=== PATIENT | female | born 1940 | race Caucasian/White ===

== ENCOUNTER 2021-04-20 11:54 | Emergency (ER) | payer MEDICARE, BC, SELFPAY ==
[2021-04-20] VITALS (13 sets, daily range): BP systolic 120–149; BP diastolic 57–88; PULSE 52–80; RESP 14–23; TEMP 36.4; O2SAT 99–100; BMI 23.1
--- NOTE | 2021-04-20 12:18 | DI.RAD.S_ITS ---
PROCEDURE: XR CHEST 1V INDICATIONS: altered mental status TECHNIQUE: One view of the chest was acquired. COMPARISON: None. FINDINGS: Surgical changes and devices: None. Lungs and pleura: There is a rounded 1.6 cm nodular opacity projecting in the left mid lung zone. No acute airspace disease identified. No pleural effusions or pneumothorax. Mediastinum: Mediastinal contours appear normal. Heart size is normal. Bones and chest wall: No suspicious bony lesions. Overlying soft tissues appear unremarkable. Diffuse osteopenia. Dextroscoliosis of the lower thoracic spine. IMPRESSION: No acute cardiopulmonary abnormalities. A 1.6 cm right mid lung zone pulmonary nodule. Recommend comparison with any prior imaging to document stability. Otherwise, recommend short interval follow-up radiograph in 3 months to document stability. Dictated by: Pito Jose M.D. on 04/20/2021 at 12:53 Approved by: Pito Jose M.D. on 04/20/2021 at 13:15
--- NOTE | 2021-04-20 12:33 | DI.CT.S_ITS ---
PROCEDURE: CT HEAD/BRAIN WO CON INDICATIONS: Headache and disorientation for 4 days TECHNIQUE: Noncontrast 4.5 mm thick angled axial sections acquired from the foramen magnum to the vertex, with coronal and sagittal reformats. For radiation dose reduction, the following was used: automated exposure control, adjustment of mA and/or kV according to patient size. COMPARISON: None. FINDINGS: Image quality: Excellent. CSF spaces: Basal cisterns are patent. No extra-axial fluid collections. The ventricles are symmetric in size and shape. Brain: There is extensive subcortical and deep white matter hypoattenuation involving the right temporal lobe and parietal lobe with associated sulcal effacement. There is mild leftward shift of approximately 1.0 cm and effacement of the right lateral ventricle. There is a more focal area of hypoattenuation involving the posterior margins of the right temporoparietal lobe with more peripheral hyperdensity, suggesting acute hemorrhage. There is cerebral volume loss for age, with resultant ventricular and sulcal prominence. There are periventricular and deep white matter chronic small vessel ischemic changes. There is intracranial internal carotid artery atherosclerosis. Skull and face: Calvarium and visualized facial bones appear intact, without suspicious lesions. Sinuses: Visualized sinuses and mastoids are clear. IMPRESSION: 1. Extensive deep white matter and periventricular hypoattenuation of the right middle cerebral artery distribution involving both the right temporal and parietal lobes. There is a more focal region of hypoattenuation with suspected acute internal hemorrhage in the posterior margins of the right temporoparietal region. There is associated edema and mass effect with 1.0 cm of leftward shift of the midline structures and effacement of the right lateral ventricle. Findings may represent hemorrhagic infarct although underlying hemorrhagic mass not completely excluded. 2. Age related senescent changes and sequela of chronic small vessel ischemic disease. Findings were discussed with Dr. Costa at 1330 hrs. Dictated by: Pito Jose M.D. on 04/20/2021 at 13:15 Approved by: Pito Jose M.D. on 04/20/2021 at 13:31
--- NOTE | 2021-04-20 12:38 | ED_ITS ---
HPI - Headache General Chief Complaint: Headache Stated Complaint: bad headache Time Seen by Provider: 04/20/21 12:32 Source: patient Mode of arrival: Ambulatory Limitations: no limitations History of Present Illness HPI Narrative: Patient is a 80-year-old female. Here for evaluation of a headache. Initially patient states that the headache is been going on for the past 4 days however the patient's thinks that was potentially longer than that. She does describe it as both sides of her head but is certainly more on the right than the left. She does have history of glaucoma although she denies any vision changes. Headache not made better worse with palpation or movement. She thought that maybe it was a sinus infection so she took some Tylenol/Sinus medication yesterday without any improvement. She denies any other neurologic symptoms. No balance issues. No ear fullness. No sore throat. No headache. No neck pain. Symptoms had not improved by this morning so she thought she would come to the emergency department for evaluation Related Data Allergies Allergy/AdvReac Type Severity Reaction Status Date / Time No Known Drug Allergies Allergy Verified 04/20/21 12:02 Review of Systems Constitutional Constitutional: Denies chills, Denies fatigue, Denies fever(s), Reports headache(s) and Denies weakness Eyes Eyes: Denies blurry vision, Denies change in vision and Denies loss of vision ENT Ears, Nose, Mouth, and Throat: Denies vertigo, Denies dizziness, Reports headache(s), Denies disequilibrium and Denies sore throat Cardiovascular Cardiovascular: Denies chest pain, Denies rapid heart rate and Denies dyspnea Respiratory Respiratory: Denies cough and Denies dyspnea Gastrointestinal Gastrointestinal: Denies abdominal pain and Denies change in bowel habits Genitourinary Genitourinary: Denies dysuria Musculoskeletal Musculoskeletal: Denies back pain, Denies myalgias, Denies numbness and Denies tingling Integumentary/Breasts Skin/Breast: Reports system reviewed and no additional complaints, except as documented Neurologic Neurologic: Denies abnormal movements, Denies abnormal speech, Denies behavioral changes, Denies vertigo, Denies dizziness, Reports headache(s), Denies loss of vision, Denies numbness, Denies seizure-like activity, Denies tingling, Denies disequilibrium and Denies weakness Psychiatric Psychiatric: Denies behavioral changes Endocrine Endocrine: Denies fatigue Hematologic/Lymphatic On Anticoagulants: No Allergic/Immunologic Allergic/Immunologic: Reports system reviewed and no additional complaints, except as documented Patient History Medical History Glaucoma Social History Smoking Status: Unknown if ever smoked Smoking Status: Unknown if ever smoked alcohol intake frequency: holidays/special occasions only Substance Use Type: does not use Exam Initial Vital Signs Initial Vital Signs: Vital Signs Temperature 97.6 F 04/20/21 11:58 Pulse Rate 80 04/20/21 11:58 Respiratory Rate 14 04/20/21 11:58 Blood Pressure 137/65 04/20/21 11:58 Pulse Oximetry 100 04/20/21 11:58 Const General: cooperative, healthy appearing, comfortable, well developed, well groomed and No acute distress HENMT Head: normal to inspection and normocephalic Ears: TM's normal bilaterally Nose: external nose normal Face and sinus: normal facial exam Eyes General: appearance normal, both eyes and all related structures Alignment and Position: alignment normal Periorbital: periorbital findings normal Eyelids: eyelids normal Pupils: PERRL EOM: EOM intact bilaterally Other: Intra-ocular pressure right eye 21 interocular pressure left eye 20, patient with left sided visual field loss Neck Neck: normal visual inspection Resp Effort & Inspection: normal respiratory effort Auscultation: clear to auscultation bilaterally Cardio Rate: regular rate Rhythm: regular rhythm GI Inspection: normal to inspection Palpation: soft Skin General: no rashes or lesions noted Neuro General: patient alert, patient awake, patient oriented x3, gait normal and moves all extremities Cognition: normal cognition Speech: speech normal Gait: normal gait Motor: muscle tone normal throughout Sensory Exam: no sensory deficits noted Coordination: [id number] test normal and [id number] test normal Extrem General: normal to inspection and capillary refill normal Psych Appearance: grossly normal and well kempt Speech and Movement: speech and movement normal Mood: congruent mood Scores GCS Jayashree coma scale eye opening: Spontaneous Gilbert coma scale verbal response: Orientated Jayashree coma scale motor response: Obey commands Jayashree coma scale total score: 15 NIH Stroke Scale Level of Conciousness: Alert, keenly responsive Ask month/age: Answers both questions correctly. Open/close eyes, close hand: Performs both tasks correctly Best gaze horizontal: Normal Visual grace: Complete hemianopia Facial palsy: Normal symetrical movement Left arm drift: No drift for full 10 sec Right arm drift: No drift for full 10 sec Left leg drift: No drift for full 5 sec Right leg drift: No drift for full 5 sec Limb ataxia: Absent Sensory on face/arms/legs: Normal, no sensory loss Best language: No aphasia, normal Dysarthria: Normal Extinction or inattention: No abnormality Total NIH Stroke scale score: 2 Course Orders Ordered: ED Orders 04/20/21 12:02 Urinalysis and Microscopic Stat Urine Culture Stat 04/20/21 12:18 XR chest 1V Stat EKG-12 Lead Stat 04/20/21 12:33 CT head/brain wo con Stat 04/20/21 12:35 Complete Blood Count AUTO DIFF Stat Comprehensive Metabolic Panel Stat 04/20/21 14:27 CT chest abd pel w con Stat MR head/brain wo/w con Stat 04/20/21 14:49 COVID19 -Nasal swab/Pre-Proc Stat Sodium Chloride (Normal Saline 0.9%) 1,000 mls @ 125 mls/hr IV CONT ZULEIKA Last Admin: 04/20/21 15:37 Dose: 125 mls/hr Documented by: Discontinued Medications Dexamethasone (Dexamethasone 10 Mg/Ml Vial) 10 mg IV NOW ONE Stop: 04/20/21 13:52 Last Admin: 04/20/21 13:57 Dose: 10 mg Documented by: ISABELLE Lorazepam (Lorazepam 2 Mg/Ml Inj) 1 mg IV NOW ONE Stop: 04/20/21 14:52 Last Admin: 04/20/21 14:56 Dose: 1 mg Documented by: DASIA Proparacaine HCl (Proparacaine 0.5% Ophth Ada) 1 drops EYE-LEFT NOW ONE Stop: 04/20/21 12:40 Last Admin: 04/20/21 13:03 Dose: 1 drops Documented by: ISABELLE Vital Signs Vital signs: Vital Signs - 8 hr 04/20/21 11:58 04/20/21 12:59 04/20/21 13:00 Temperature 97.6 F Pulse Rate 80 53 L 53 L Respiratory Rate 14 19 18 Blood Pressure 137/65 125/60 Pulse Oximetry 100 100 100 04/20/21 13:30 04/20/21 14:00 04/20/21 14:17 Temperature Pulse Rate 52 L 69 63 Respiratory Rate 15 22 Blood Pressure 138/62 149/65 H Pulse Oximetry 100 100 100 04/20/21 14:30 Temperature Pulse Rate 59 L Respiratory Rate 22 Blood Pressure 136/65 Pulse Oximetry 100 MDM - Headache Lab Data Attestation: I reviewed the patient's lab results. Result diagrams: 04/20/21 12:35 04/20/21 12:35 Labs: Lab Results 04/20/21 04/20/21 04/20/21 Range/Units 12:02 12:35 12:35 WBC 6.4 (4.5-11.0) X10^3/uL RBC 4.47 (4.0-5.2) X10^6/uL Hgb 14.1 (12.0-16.0) g/dL Hct 42.0 (36-46) % MCV 94.0 (80-100) fL MCH 31.5 (26-34) PG MCHC 33.5 (30-36) % RDW 13.9 (11.6-14.8) % Plt Count 169 (150-400) X10^3/uL Neut % (Auto) 75.4 H (50-75) % Lymph % (Auto) 17.2 L (25-40) % Gordon % (Auto) 6.1 (3-14) % Eos % (Auto) 0.6 L (2-4) % Baso % (Auto) 0.7 (0-2) % Neut # (Auto) 4800 (2484-8253) /uL Lymph # (Auto) 1100 (9453-1110) /uL Gordon # (Auto) 400 (0-900) /uL Eos # (Auto) 0 (0-450) /uL Baso # (Auto) 0 (0-100) /uL Sodium 141 (137-145) mmol/L Potassium 3.6 (3.4-5.1) mmol/L Chloride 104 (98-107) mmol/L Carbon Dioxide 28 (22-32) mmol/L BUN 17 (7-17) mg/dL Creatinine 0.68 (0.52-1.04) mg/dL Estimated GFR > 60.0 (>60) mL/min BUN/Creatinine Ratio 25.0 H (6-22) Glucose 111 H (80-110) mg/dL Calcium 10.1 (8.4-10.2) mg/dL Total Bilirubin 0.8 (0.2-1.3) mg/dL AST 25 (14-36) IU/L ALT 16 (<35) IU/L Alkaline Phosphatase 97 (38-126) U/L Total Protein 7.4 (6.3-8.2) g/dL Albumin 4.8 (3.5-5.0) g/dL Globulin 2.6 (1.7-4.1) g/dL Albumin/Globulin Ratio 1.8 (1.0-2.8) Urine Color Yellow Urine Appearance Clear Urine pH 6.0 (4.5-8.0) Ur Specific [place] <=1.005 (1.000-1.035) Urine Protein Negative (Negative) Urine Glucose (UA) Negative (Negative) g/dL Urine Ketones Negative (NEGATIVE) Urine Occult Blood 2+ H (Negative) Urine Nitrate Negative (Negative) Urine Bilirubin Negative (NEGATIVE) Urine Urobilinogen 0.2 (0.2) E.U./dL Ur Leukocyte Esterase Trace H (NEGATIVE) Urine RBC 1-5/hpf (0-5/HPF) Urine WBC 1-5/hpf (0-5/HPF) Ur Squamous Epith Cells 1-5 /hpf (0-5/HPF) Ur Transition Epith Cell 1-5/hpf (0-5/HPF) Ur Renal Epithelial Cell 1-5/hpf H (0-1/HPF) Urine Bacteria Few (2-10) H (None) Ur Culture Indicated? Specimen cultured SARS-CoV-2 (PCR) (Negative) 04/20/21 Range/Units 14:49 WBC (4.5-11.0) X10^3/uL RBC (4.0-5.2) X10^6/uL Hgb (12.0-16.0) g/dL Hct (36-46) % MCV (80-100) fL MCH (26-34) PG MCHC (30-36) % RDW (11.6-14.8) % Plt Count (150-400) X10^3/uL Neut % (Auto) (50-75) % Lymph % (Auto) (25-40) % Gordon % (Auto) (3-14) % Eos % (Auto) (2-4) % Baso % (Auto) (0-2) % Neut # (Auto) (4018-7838) /uL Lymph # (Auto) (3850-1063) /uL Gordon # (Auto) (0-900) /uL Eos # (Auto) (0-450) /uL Baso # (Auto) (0-100) /uL Sodium (137-145) mmol/L Potassium (3.4-5.1) mmol/L Chloride (98-107) mmol/L Carbon Dioxide (22-32) mmol/L BUN (7-17) mg/dL Creatinine (0.52-1.04) mg/dL Estimated GFR (>60) mL/min BUN/Creatinine Ratio (6-22) Glucose (80-110) mg/dL Calcium (8.4-10.2) mg/dL Total Bilirubin (0.2-1.3) mg/dL AST (14-36) IU/L ALT (<35) IU/L Alkaline Phosphatase (38-126) U/L Total Protein (6.3-8.2) g/dL Albumin (3.5-5.0) g/dL Globulin (1.7-4.1) g/dL Albumin/Globulin Ratio (1.0-2.8) Urine Color Urine Appearance Urine pH (4.5-8.0) Ur Specific [place] (1.000-1.035) Urine Protein (Negative) Urine Glucose (UA) (Negative) g/dL Urine Ketones (NEGATIVE) Urine Occult Blood (Negative) Urine Nitrate (Negative) Urine Bilirubin (NEGATIVE) Urine Urobilinogen (0.2) E.U./dL Ur Leukocyte Esterase (NEGATIVE) Urine RBC (0-5/HPF) Urine WBC (0-5/HPF) Ur Squamous Epith Cells (0-5/HPF) Ur Transition Epith Cell (0-5/HPF) Ur Renal Epithelial Cell (0-1/HPF) Urine Bacteria (None) Ur Culture Indicated? SARS-CoV-2 (PCR) Negative (Negative) Point of Care Testing Glucose POC 103 Urine Dip Bedside Urine Glucose Negative Bedside Urine Bilirubin - Negative Bedside Urine Ketone - Negative Urine Specific [place] 1.010 Bedside Urine Occult Blood + Bedside Urine pH 6.0 Bedside Urine Protein - Negative Bedside Urine Urobilinogen - Negative Bedside Urine Nitrite - Negative Bedside Urine Leukocytes - Negative Esterase Imaging Data Chest x-ray: Radiologist's Impression: [address] [address] XRay Report Signed Patient: Soniya Braun MR#: [id number] : 1940 Acct:[id number] Age/Sex: 80 / F Date of Service: 04/20/21 Loc: ED Accession Number: [id number] ?? Procedure: XR chest 1V Ordering Provider: Freddy Costa D.O. PROCEDURE:? XR CHEST 1V ? INDICATIONS:? altered mental status ? TECHNIQUE:? One view of the chest was acquired.? ? COMPARISON:? None. ? FINDINGS:? ? Surgical changes and devices:? None.? ? Lungs and pleura:? There is a rounded 1.6 cm nodular opacity projecting in the left mid lung zone.? No acute airspace disease identified.? No pleural effusions or pneumothorax.? ? ? Mediastinum:? Mediastinal contours appear normal.? Heart size is normal.? ? Bones and chest wall:? No suspicious bony lesions.? Overlying soft tissues appear unremarkable.? Diffuse osteopenia.? Dextroscoliosis of the lower thoracic spine. ? IMPRESSION:? No acute cardiopulmonary abnormalities. A 1.6 cm right mid lung zone pulmonary nodule.? Recommend comparison with any prior imaging to document stability.? Otherwise, recommend short interval follow-up radiograph in 3 months to document stability. ? ? Dictated by: Pito Jose M.D. on 04/20/2021 at 12:53 ? ? Approved by: Pito Jose M.D. on 04/20/2021 at 13:15? CT scan - head: Radiologist's Impression: [address] [address] [address] Scan Report Signed Patient: Soniya Braun MR#: [id number] : 1940 Acct:[id number] Age/Sex: 80 / F Date of Service: 04/20/21 Loc: ED Accession Number: [id number] ?? Procedure: CT head/brain wo con Ordering Provider: Freddy Costa D.O. PROCEDURE:? CT HEAD/BRAIN WO CON ? INDICATIONS:? Headache and disorientation for 4 days ? TECHNIQUE:? Noncontrast 4.5 mm thick angled axial sections acquired from the foramen magnum to the vertex, with coronal and sagittal reformats.? For radiation dose reduction, the following was used:? automated exposure control, adjustment of mA and/or kV according to patient size.? ? COMPARISON:? None. ? FINDINGS:? Image quality:? Excellent.? ? CSF spaces:? Basal cisterns are patent.? No extra-axial fluid collections.? The ventricles are symmetric in size and shape.? ? Brain:? There is extensive subcortical and deep white matter hypoattenuation involving the right temporal lobe and parietal lobe with associated sulcal effacement.? There is mild leftward shift of approximately 1.0 cm and effacement of the right lateral ventricle.? There is a more focal area of hypoattenuation involving the posterior margins of the right temporoparietal lobe with more peripheral hyperdensity, suggesting acute hemorrhage. There is cerebral volume loss for age, with resultant ventricular and sulcal prominence.? There are periventricular and deep white matter chronic small vessel ischemic changes.? There is intracranial internal carotid artery atherosclerosis.? ? Skull and face:? Calvarium and visualized facial bones appear intact, without suspicious lesions.? ? Sinuses:? Visualized sinuses and mastoids are clear.? ? IMPRESSION:? ? 1. Extensive deep white matter and periventricular hypoattenuation of the right middle cerebral artery distribution involving both the right temporal and parietal lobes.? There is a more focal region of hypoattenuation with suspected acute internal hemorrhage in the posterior margins of the right temporoparietal region.? There is associated edema and mass effect with 1.0 cm of leftward shift of the midline structures and effac ement of the right lateral ventricle.? Findings may represent hemorrhagic infarct although underlying hemorrhagic mass not completely excluded. ? 2. Age related senescent changes and sequela of chronic small vessel ischemic disease. ? ?Findings were discussed with Dr. Costa at 1330 hrs.? Dictated by: Pito Jose M.D. on 04/20/2021 at 13:15 ? ? Approved by: Pito Jose M.D. on 04/20/2021 at 13:31?? CT chest/abd/pelvis: Radiologist's Impression: [address] [address] [address] Scan Report Signed Patient: Soniya Braun MR#: [id number] : 1940 Acct:[id number] Age/Sex: 80 / F Date of Service: 04/20/21 Loc: ED Accession Number: [id number] ?? Procedure: CT chest abd pel w con Ordering Provider: Freddy Costa D.O. PROCEDURE:? CT CHEST ABD PEL W CON ? INDICATIONS:? brain tumor eval for primary ? TECHNIQUE:? After the administration of oral and intravenous contrast, axial sections acquired from the supraclavicular neck to the pubic symphysis.? Coronal and sagittal reformats were performed.? For radiation dose reduction, the following was used:? automated exposure control, adjustment of mA and/or kV according to patient size.? ? COMPARISON:[facility], MR, MR HEAD/BRAIN WO/W CON, 04/20/2021, 14:57.? [facility], CT, CT HEAD/BRAIN WO CON, 04/20/2021, 12:43. ? FINDINGS:? Image quality:? Excellent.? ? CHEST: Lower Neck: No enlarged lymph nodes.? Thyroid:? Visualized thyroid demonstrates no discrete nodules. Axillae: No enlarged lymph nodes. Chest Wall:? Unremarkable.? ? Lungs and Airways:? There is a left upper lobe pulmonary nodule measuring up to 1.7 x 1.5 cm in transverse dimension on series 3, image 131. The findings are highly suspicious for a neoplasm.? Elsewhere, there are areas of multiple small clustered nodules within the left lingula, right upper lobe, right lower lobe, and right middle lobe with associated mild bronchiectasis and mucous plugging also demonstrated in the right middle lobe.? Small peripheral areas of consolidation or atelectasis are also noted in the inferior right middle lobe.? These findings are compatible with sequelae of a chronic atypical infection such as [place].? Pleura: No pneumothorax or pleural effusions.? ? Heart: Heart size is normal.? No pericardial effusion. Thoracic Vessels: The aorta and pulmonary arteries demonstrate normal size.? Mediastinum and Alison: No enlarged lymph nodes.? Esophagus: No wall thickening.? There is a small hiatal hernia. ? ? ABDOMEN: Liver:? Multiple cysts are demonstrated in the liver as well as additional small low-density foci which are too small to characterize but likely represent cysts.? There is a region of coarse calcification posteriorly within the right hepatic lobe suggesting sequelae of prior infection.? ? Gallbladder:? Unremarkable.? ? Biliary ducts:? Unremarkable.? ? Pancreas:? Unremarkable.? ? Spleen:? Unremarkable.? ? Adrenal Glands:? Unremarkable.? ? Kidneys and Ureters:? Kidneys demonstrate no hydronephrosis.? There is a small hypodensity medially within the left kidney which is too small to characterize but likely represents a cyst. ? Stomach and Bowel:? Stomach, small bowel loops, and colon are normal in caliber and wall thickness.? There is colonic diverticulosis without acute diverticulitis. Peritoneum:? No abnormal intraperitoneal fluid.? No free air.? ? Ventral Wall: ? No hernia.? Abdominal Nodes:? No retroperitoneal or mesenteric adenopathy by size criteria.? Vessels:? Aorta and inferior vena cava are normal in size.? ? PELVIS: Pelvic Organs:? There are lobulated mass lesions within the uterus likely representing fibroids.? No definite adnexal masses. Bladder:? Unremarkable.? ? Pelvic Nodes: No enlarged lymph nodes.? Miscellaneous: No inguinal hernias are seen. ? ? ? Bones:? Visualized osseous structures demonstrate no suspicious focal lesions.? ? ? IMPRESSION:? ? 1.? Left upper lobe nodule suspicious for neoplasm, likely bronchogenic carcinoma. ? 2.? No lymphadenopathy or other definite evidence of metastatic disease in the chest, abdomen, or pelvis. ? 3.? Multiple additional small clustered nodules bilaterally with associated areas of bronchiectasis and mucous plugging and mild peripheral consolidation in the right middle lobe likely represents sequelae of a chronic atypical infection such as [place]. ? 4. Lobulated uterine masses likely representing fibroids. ? Dictated by: John Younger M.D. on 04/20/2021 at 15:33 ? ? Approved by: John Younger M.D. on 04/20/2021 at 15:44?? MRI brain: Radiologist's Impression: [address] [address] Magnetic Resonance Report Signed Patient: Soniya Braun MR#: [id number] : 1940 Acct:[id number] Age/Sex: 80 / F Date of Service: 04/20/21 Loc: ED Accession Number: [id number] ?? Procedure: MR head/brain wo/w con Ordering Provider: Freddy Costa D.O. PROCEDURE:? MR HEAD/BRAIN WO/W CON ? INDICATIONS:? brain mass ? TECHNIQUE:? Noncontrast axial T1 spin echo, axial T2 fast spin echo, sagittal and axial FLAIR, coronal T2 fast spin echo, axial gradient echo, axial diffusion and ADC through the brain.? After the administration of contrast, axial and coronal T1 spin echo with fat saturation through the brain.? ? COMPARISON:? [facility], CT, CT HEAD/BRAIN WO CON, 04/20/2021, 12:43. ? FINDINGS:? Image quality:? Excellent.? ? CSF spaces:? No extra-axial fluid collections.? The right lateral ventricle is narrowed.? The basal cisterns remain patent, yet they are also narrowed. ? Brain:? There is a heterogeneous rim enhancing mass seen involving the posterior aspect of the right temporal lobe that measures 4.7 cm AP x 3.3 cm transversely, with a craniocaudal extent of 3.6 cm.? There is moderate surrounding edema seen.? Associated mass effect is seen, with midline shift of 7 mm.? Along the margins of the mass, there is restricted diffusion seen, which is regarded to be related to the highly cellular nature of the tumor.? Mild internal hemorrhage is seen, with susceptibility artifact on series 10. ? No additional masses are seen. ? There is cerebral volume loss for age.? There is periventricular white matter chronic small vessel ischemic change.? The brainstem appears normal.? Diffusion-weighted images demonstrate no acute ischemic insults.? No chronic ischemic insults.? Normal intravascular flow voids are present.? ? Skull and face:? Calvarial marrow is normal in signal.? A scalp lesion is seen anteriorly and distal left the midline, as on series 12, image 10, measuring 9 mm, potentially related to a sebaceous cyst.? Orbits appear normal.? ? Sinuses:? Sinuses and mastoids appear clear.? ? IMPRESSION:? 4.7 cm mass involving the right temporal lobe, with associated mo derate surrounding edema and mass effect, with 7 mm of midline shift. ? Mild hemorrhage can be seen within the mass. ? Neurosurgical consultation is recommended.? ? Dictated by: Darrel Urbano M.D. on 04/20/2021 at 14:37 ? ? Approved by: Darrel Urbano M.D. on 04/20/2021 at 14:40?? ECG Data Attestation: I personally reviewed and interpreted this ECG as follows: Interpretation: Sinus rhythm Ventricular rate is 63 Normal axis QRS 72 milliseconds QTC [address]-T changes MDM Narrative Medical decision making narrative: Patient arrived with at least 4 days of a headache with right side being greater than left. Initially described no other symptoms. Exam was benign. Vital signs benign. Lab benign. Head CT concerning for right temporal lobe stroke versus mass with midline shift and edema. Further evaluation the patient after this result did show an NIH score of 2 with left-sided visual field loss. Patient was given 10 mg of Decadron. I did discuss the case with Dr. Solis with Neurology at [facility]. She evaluated the head CT and was more concerned about a mass rather than an acute CVA or bleed. She recommended CT scan the chest abdomen pelvis for evaluation of potential primary neoplastic etiology. This was performed. She does have a left lung nodule concerning for carcinoma. Patient also received an MRI with and without contrast of the brain. This does show mass. Patient was accepted to [place] by Dr. Hussein in the emergency department. Secondary to recent weather and concern about wrote closures patient will be transferred by air left. I did discuss all this with the patient and her at bedside. They expressed understanding and agreement. Critical Care Time Critical Care Time Critical Care Time: Yes Total Critical Care Time: 35 Attestation: The high probability of a clinically significant, sudden or life threatening deterioration of the neurologic system(s) required my full and direct attention, intervention and personal management. The aggregate critical care time was [35] minutes. This time is in addition to time spent performing reported procedures but includes the following: [x] Data Review and interpretation [x] Patient assessment and monitoring of vital signs [x] Documentation [x] Medication orders and management Discharge Plan Departure Patient Disposition: [facility] Clinical Impression: Mass of left lung, Mass of brain, Visual field loss
[2021-04-20 12:41] LABS: Add Manual Diff / Slide Review NO; Basophils Absolute Auto 0 /uL (0-100); Basophils Percent Auto 0.7 % (0-2); Eosinophils Absolute Auto 0 /uL (0-450); Eosinophils Percent Auto 0.6 % (2-4); Hemoglobin 14.1 g/dL (12.0-16.0); Lymphocytes Absolute Auto 1100 /uL (1100-4500); Lymphocytes Percent Auto 17.2 % (25-40); Mean Corpuscular HGB Conc 33.5 % (30-36); Mean Corpuscular Hemoglobin 31.5 PG (26-34); Monocytes Absolute Auto 400 /uL (0-900); Monocytes Percent Auto 6.1 % (3-14); Neutrophils Absolute Auto 4800 /uL (1500-7000); Neutrophils Percent Auto 75.4 % (50-75); Platelet Count 169 X10^3/uL (150-400); Red Blood Cell Count 4.47 X10^6/uL (4.0-5.2); Red Cell Distribution Width 13.9 % (11.6-14.8); White Blood Cell Count 6.4 X10^3/uL (4.5-11.0)
[2021-04-20 12:47] LABS: Appearance Urine UA CLEAR; Bilirubin Urine UA NEGATIVE (NEGATIVE); Color Urine UA YELLOW; Glucose Urine UA NEGATIVE (Negative); Ketones Urine UA NEGATIVE (NEGATIVE); Leukocyte Esterase Urine UA TRACE (NEGATIVE); Nitrite Urine UA NEGATIVE (Negative); Occult Blood Urine UA 2+ (Negative); Protein Urine UA NEGATIVE (Negative); Specific Gravity Urine UA <=1.005 (1.000-1.035); Urobilinogen Urine UA 0.2 E.U./dL (0.2)
[2021-04-20 12:57] LABS: Alanine Aminotransferase 16 IU/L (<35); Albumin 4.8 g/dL (3.5-5.0); Albumin Globulin Ratio 1.8 (1.0-2.8); Alkaline Phosphatase 97 U/L (38-126); Aspartate Aminotransferase 25 IU/L (14-36); Bilirubin Total 0.8 mg/dL (0.2-1.3); Blood Urea Nitrogen 17 mg/dL (7-17); Calcium 10.1 mg/dL (8.4-10.2); Carbon Dioxide 28 mmol/L (22-32); Chloride 104 mmol/L (98-107); Estimated Glomerular Filt Rate > 60.0 mL/min (>60); Globulin 2.6 g/dL (1.7-4.1); Glucose 111 mg/dL (80-110); HEMOLYSIS < 15 (0-50); Potassium 3.6 mmol/L (3.4-5.1); Sodium 141 mmol/L (137-145); Total Protein 7.4 g/dL (6.3-8.2)
[2021-04-20] MEDS: PROPARACAINE 0.5% OPHTH SOL 1 DROPS EYE-LEFT (13:03)
[2021-04-20 13:19] LABS: Bacteria Urine Few (2-10); Culture Indicated Urine Specimen Cultured; RBC Urine 1-5/HPF (0-5/HPF); Renal Epithelial Cells Urine 1-5/HPF (0-1/HPF); Squamous Epithelial Cell Urine 1-5 /HPF (0-5/HPF); Transitional Epi Cells Urine 1-5/HPF (0-5/HPF); WBC Urine 1-5/HPF (0-5/HPF)
[2021-04-20] MEDS: DEXAMETHASONE 10 MG/ML VIAL IV (13:57)
--- NOTE | 2021-04-20 14:27 | DI.CT.S_ITS ---
PROCEDURE: CT CHEST ABD PEL W CON INDICATIONS: brain tumor eval for primary TECHNIQUE: After the administration of oral and intravenous contrast, axial sections acquired from the supraclavicular neck to the pubic symphysis. Coronal and sagittal reformats were performed. For radiation dose reduction, the following was used: automated exposure control, adjustment of mA and/or kV according to patient size. COMPARISON:[facility], MR, MR HEAD/BRAIN WO/W CON, 04/20/2021, 14:57. [facility], CT, CT HEAD/BRAIN WO CON, 04/20/2021, 12:43. FINDINGS: Image quality: Excellent. CHEST: Lower Neck: No enlarged lymph nodes. Thyroid: Visualized thyroid demonstrates no discrete nodules. Axillae: No enlarged lymph nodes. Chest Wall: Unremarkable. Lungs and Airways: There is a left upper lobe pulmonary nodule measuring up to 1.7 x 1.5 cm in transverse dimension on series 3, image 131. The findings are highly suspicious for a neoplasm. Elsewhere, there are areas of multiple small clustered nodules within the left lingula, right upper lobe, right lower lobe, and right middle lobe with associated mild bronchiectasis and mucous plugging also demonstrated in the right middle lobe. Small peripheral areas of consolidation or atelectasis are also noted in the inferior right middle lobe. These findings are compatible with sequelae of a chronic atypical infection such as [place]. Pleura: No pneumothorax or pleural effusions. Heart: Heart size is normal. No pericardial effusion. Thoracic Vessels: The aorta and pulmonary arteries demonstrate normal size. Mediastinum and Alison: No enlarged lymph nodes. Esophagus: No wall thickening. There is a small hiatal hernia. ABDOMEN: Liver: Multiple cysts are demonstrated in the liver as well as additional small low-density foci which are too small to characterize but likely represent cysts. There is a region of coarse calcification posteriorly within the right hepatic lobe suggesting sequelae of prior infection. Gallbladder: Unremarkable. Biliary ducts: Unremarkable. Pancreas: Unremarkable. Spleen: Unremarkable. Adrenal Glands: Unremarkable. Kidneys and Ureters: Kidneys demonstrate no hydronephrosis. There is a small hypodensity medially within the left kidney which is too small to characterize but likely represents a cyst. Stomach and Bowel: Stomach, small bowel loops, and colon are normal in caliber and wall thickness. There is colonic diverticulosis without acute diverticulitis. Peritoneum: No abnormal intraperitoneal fluid. No free air. Ventral Wall: No hernia. Abdominal Nodes: No retroperitoneal or mesenteric adenopathy by size criteria. Vessels: Aorta and inferior vena cava are normal in size. PELVIS: Pelvic Organs: There are lobulated mass lesions within the uterus likely representing fibroids. No definite adnexal masses. Bladder: Unremarkable. Pelvic Nodes: No enlarged lymph nodes. Miscellaneous: No inguinal hernias are seen. Bones: Visualized osseous structures demonstrate no suspicious focal lesions. IMPRESSION: 1. Left upper lobe nodule suspicious for neoplasm, likely bronchogenic carcinoma. 2. No lymphadenopathy or other definite evidence of metastatic disease in the chest, abdomen, or pelvis. 3. Multiple additional small clustered nodules bilaterally with associated areas of bronchiectasis and mucous plugging and mild peripheral consolidation in the right middle lobe likely represents sequelae of a chronic atypical infection such as [place]. 4. Lobulated uterine masses likely representing fibroids. Dictated by: John Younger M.D. on 04/20/2021 at 15:33 Approved by: John Younger M.D. on 04/20/2021 at 15:44
--- NOTE | 2021-04-20 14:27 | DI.MRI.S_ITS ---
PROCEDURE: MR HEAD/BRAIN WO/W CON INDICATIONS: brain mass TECHNIQUE: Noncontrast axial T1 spin echo, axial T2 fast spin echo, sagittal and axial FLAIR, coronal T2 fast spin echo, axial gradient echo, axial diffusion and ADC through the brain. After the administration of contrast, axial and coronal T1 spin echo with fat saturation through the brain. COMPARISON: [facility], CT, CT HEAD/BRAIN WO CON, 04/20/2021, 12:43. FINDINGS: Image quality: Excellent. CSF spaces: No extra-axial fluid collections. The right lateral ventricle is narrowed. The basal cisterns remain patent, yet they are also narrowed. Brain: There is a heterogeneous rim enhancing mass seen involving the posterior aspect of the right temporal lobe that measures 4.7 cm AP x 3.3 cm transversely, with a craniocaudal extent of 3.6 cm. There is moderate surrounding edema seen. Associated mass effect is seen, with midline shift of 7 mm. Along the margins of the mass, there is restricted diffusion seen, which is regarded to be related to the highly cellular nature of the tumor. Mild internal hemorrhage is seen, with susceptibility artifact on series 10. No additional masses are seen. There is cerebral volume loss for age. There is periventricular white matter chronic small vessel ischemic change. The brainstem appears normal. Diffusion-weighted images demonstrate no acute ischemic insults. No chronic ischemic insults. Normal intravascular flow voids are present. Skull and face: Calvarial marrow is normal in signal. A scalp lesion is seen anteriorly and distal left the midline, as on series 12, image 10, measuring 9 mm, potentially related to a sebaceous cyst. Orbits appear normal. Sinuses: Sinuses and mastoids appear clear. IMPRESSION: 4.7 cm mass involving the right temporal lobe, with associated moderate surrounding edema and mass effect, with 7 mm of midline shift. Mild hemorrhage can be seen within the mass. Neurosurgical consultation is recommended. Dictated by: Darrel Urbano M.D. on 04/20/2021 at 14:37 Approved by: Darrel Urbano M.D. on 04/20/2021 at 14:40
[2021-04-20] MEDS: LORazepam 2 MG/ML INJ 1 MG IV (14:56)
[2021-04-20 15:18] LABS: COVID19 -Nasal RAPID Negative (Negative)
[2021-04-20] MEDS: SODIUM CHLORIDE 0.9% 1,000 ML 125 ML IV (15:37)
== END 2021-04-20 16:55 | disposition short-term general hospital (02) ==
PROVIDERS: Emergency Provider Emergency Medicine
DX: G93.6 Cerebral edema (principal); R93.89 Abnormal findings on diagnostic imaging of other specified body structures; R91.8 Other nonspecific abnormal finding of lung field; H53.132 Sudden visual loss, left eye; Z20.822 Contact with and (suspected) exposure to COVID-19
CPT/HCPCS: 36415; 70450; 70553; 71045; 71260; 74177; 80053; 81001; 81003; 82962; 85025; 87086; 87635; 93005; 96361; 96374; 96375; 99285; 99291; C9803; A9579; J1100; J2060; Q9967

== ENCOUNTER 2021-05-15 10:29 | Emergency (ER) | payer MEDICARE, BC, SELFPAY ==
[2021-05-15] VITALS (16 sets, daily range): BP systolic 123–143; BP diastolic 57–66; PULSE 57–68; RESP 14–32; O2SAT 98–100
--- NOTE | 2021-05-15 11:27 | ED_ITS ---
HPI - Dental/Oral General Chief complaint: Dental/Oral Stated complaint: Spasms mouth/throat. Surg on rt side of head t-30 Time Seen by Provider: 05/15/21 11:05 Mode of arrival: Ambulatory History of Present Illness HPI Narrative: The patient was seen here 04/20/21 and diagnosed with a brain mass. 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 She has undergone brain surgery. She has seen last week and started on antibiotics for concern for infection in her right scalp wound. She is given Septra DS. Prior to arrival here, she developed a tremor/spasm to her lower jaw. Symptoms resolved within 20 minutes. She is alert and oriented, but hard of hearing. She has no jaw or dental pain. She denies sore throat. She denies headache. She has no fever. She and her feel the wound is healing well with the antibiotics. She has no chest pain or dyspnea. She has no visual changes or dysarthria. She has no peripheral numbness or weakness. There is no peripheral numbness or weakness noted when the jaw tremor current. She has no history of seizure. Her did not note any peripheral shaking/tremor. Related Data Home Medications Medication Instructions Recorded Confirmed brimonidine 0.2 % eye drops drp 04/20/21 dorzolamide 2 % eye drops drp 04/20/21 latanoprost 0.005 % eye drops drp 04/20/21 Previous Rx's Medication Instructions Recorded levetiracetam 500 mg tablet 500 mg PO BID #120 tab 05/15/21 (Keppra) Allergies Allergy/AdvReac Type Severity Reaction Status Date / Time No Known Drug Allergies Allergy Verified 04/20/21 12:02 Review of Systems Constitutional Constitutional: Denies chills, Denies fatigue, Denies fever(s) and Denies headache(s) Comments: Poor hearing Eyes Eyes: Denies diplopia, Denies floaters, Denies itchy eyes and Reports other (No focal vision loss.) ENT Ears, Nose, Mouth, and Throat: Reports as per HPI, Denies dental pain, Denies vertigo, Denies dizziness, Denies headache(s), Denies sinus pressure and Denies sore throat Cardiovascular Cardiovascular: Denies chest pain, Denies rapid heart rate and Denies dyspnea Respiratory Respiratory: Denies cough and Denies dyspnea Gastrointestinal Gastrointestinal: Denies abdominal pain Musculoskeletal Musculoskeletal: Denies muscle weakness and Denies numbness Integumentary/Breasts Skin/Breast: Denies lesions and Denies rash Comments: Healing wound, right scalp. Neurologic Neurologic: Denies confusion, Denies vertigo, Denies dizziness, Denies headache(s), Denies memory loss and Denies numbness Comments: Lower jaw tremor, no peripheral seizure-like activity. Psychiatric Psychiatric: Denies confusion and Denies memory loss Endocrine Endocrine: Denies fatigue Allergic/Immunologic Allergic/Immunologic: Denies itchy eyes Patient History Medical History (Updated 05/15/21 @ 16:34 by Mundo Hansen MD) Glaucoma Glioblastoma multiforme of brain Surgical History (Updated 05/15/21 @ 16:34 by Mundo Hansen MD) S/P craniotomy Social History Smoking Status: Unknown if ever smoked Smoking Status: Unknown if ever smoked alcohol intake frequency: holidays/special occasions only Substance Use Type: does not use Exam Initial Vital Signs Initial Vital Signs: Vital Signs Pulse Rate 64 05/15/21 11:45 Pulse Oximetry 98 05/15/21 11:45 Const General: cooperative and comfortable Nutritional Appearance: average body habitus Orientation: Orientation (x3) HENMO Head: other (Healing right parietal craniotomy site) Ears: TM's normal bilaterally Face and sinus: normal facial exam and sinuses nontender Mouth: oral mucosae normal Teeth and gingiva: dentition normal Throat: posterior oropharynx normal Eyes General: appearance normal, both eyes and all related structures Pupils: PERRL EOM: EOM intact bilaterally Neck Neck: normal visual inspection, full ROM and no meningeal signs Resp Auscultation: clear to auscultation bilaterally Cardio Rate: regular rate Rhythm: regular rhythm Heart Sounds: S1 normal and S2 normal GI Inspection: normal to inspection Palpation: soft and No tender Auscultation: normal bowel sounds Back/Spine/Pelvis Back: normal to inspection Skin General: no rashes or lesions noted Neuro General: patient alert, patient awake, patient oriented x3 and no focal motor deficits Other: NIHSS is 0. Course Course Course Narrative: During her ER stay the patient developed the quiver in her lower jaw once again. She had spasm extending the left jaw. She is awake awake and alert during the event, but she cannot speak and she cannot swallow. Extraocular movements are intact. There is no nystagmus. There is no spasmodic activity in her extremities. Ativan was ordered, but not given. The seizure ceased before medicated. CT showed postoperative changes only. There were no acute findings. The patient was on Keppra postoperative, but medication use ceased. I discussed the case with , neurosurgery at [facility]. The patient is clinically stable, currently asymptomatic. The patient was started back on Keppra 500 mg b.i.d.. She has follow-up with Oncology in the upcoming days. Orders Ordered: ED Orders 05/15/21 11:58 CBC Auto Diff [Complete Blood Count AUTO DIFF] Stat CMP [Comprehensive Metabolic Panel] Stat Prolactin Stat 05/15/21 13:20 Urine Microscopic Stat 05/15/21 13:24 CT head/brain wo con Stat 05/15/21 15:05 COVID19 - ADMIT ([employer] swab/PCR) Stat Discontinued Medications Levetiracetam (Levetiracetam 250 Mg Tablet) 500 mg PO NOW ONE Stop: 05/15/21 16:03 Last Admin: 05/15/21 16:17 Dose: 500 mg Documented by: CHRISTIAN Vital Signs Vital signs: Vital Signs - 8 hr 05/15/21 11:45 05/15/21 11:46 05/15/21 12:00 Pulse Rate 64 59 L 61 Respiratory Rate 18 Blood Pressure 125/59 L 131/60 Pulse Oximetry 98 99 100 05/15/21 12:30 05/15/21 13:00 05/15/21 13:27 Pulse Rate 57 L 58 L 68 Respiratory Rate Blood Pressure 126/58 L 137/63 142/61 H Pulse Oximetry 99 99 99 05/15/21 13:29 05/15/21 13:30 05/15/21 14:00 Pulse Rate 68 62 60 Respiratory Rate 27 H 32 H 20 Blood Pressure 143/66 H 139/63 133/58 L Pulse Oximetry 100 100 100 05/15/21 14:25 05/15/21 14:30 05/15/21 14:31 Pulse Rate 65 63 64 Respiratory Rate 18 18 18 Blood Pressure 133/58 L 123/57 L Pulse Oximetry 100 99 100 05/15/21 15:00 05/15/21 15:30 05/15/21 15:59 Pulse Rate 58 L 59 L 57 L Respiratory Rate 18 18 14 Blood Pressure 133/61 139/63 Pulse Oximetry 99 100 98 05/15/21 16:00 Pulse Rate 57 L Respiratory Rate 14 Blood Pressure 127/58 L Pulse Oximetry 98 MDM - Dental/Oral Lab Data Result diagrams: 05/15/21 11:58 05/15/21 11:58 Labs: Lab Results 05/15/21 05/15/21 05/15/21 Range/Units 11:58 11:58 13:20 WBC 7.5 (4.5-11.0) X10^3/uL RBC 3.61 L (4.0-5.2) X10^6/uL Hgb 11.7 L (12.0-16.0) g/dL Hct 34.3 L (36-46) % MCV 95.2 (80-100) fL MCH 32.3 (26-34) PG MCHC 33.9 (30-36) % RDW 14.9 H (11.6-14.8) % Plt Count 227 (150-400) X10^3/uL Neut % (Auto) 79.9 H (50-75) % Lymph % (Auto) 11.5 L (25-40) % [place] % (Auto) 8.2 (3-14) % Eos % (Auto) 0.3 L (2-4) % Baso % (Auto) 0.1 (0-2) % Neut # (Auto) 6000 (4491-0794) /uL Lymph # (Auto) 900 L (7082-6038) /uL [place] # (Auto) 600 (0-900) /uL Eos # (Auto) 0 (0-450) /uL Baso # (Auto) 0 (0-100) /uL Sodium 133 L (137-145) mmol/L Potassium 4.3 (3.4-5.1) mmol/L Chloride 101 (98-107) mmol/L Carbon Dioxide 26 (22-32) mmol/L BUN 20 H (7-17) mg/dL Creatinine 0.80 (0.52-1.04) mg/dL Estimated GFR > 60.0 (>60) mL/min BUN/Creatinine Ratio 25.0 H (6-22) Glucose 85 (80-110) mg/dL Calcium 9.7 (8.4-10.2) mg/dL Total Bilirubin 0.6 (0.2-1.3) mg/dL AST 20 (14-36) IU/L ALT 22 (<35) IU/L Alkaline Phosphatase 76 (38-126) U/L Total Protein 6.4 (6.3-8.2) g/dL Albumin 3.8 (3.5-5.0) g/dL Globulin 2.6 (1.7-4.1) g/dL Albumin/Globulin Ratio 1.5 (1.0-2.8) Prolactin 25.5 H (3.0-18.6) ng/mL Urine RBC None seen (0-5/HPF) Urine WBC 0-1/hpf (0-5/HPF) Ur Squamous Epith Cells 5-10 /hpf H (0-5/HPF) Urine Bacteria None seen (None) Ur Culture Indicated? Cult not indicated SARS-CoV-2 (PCR) (Negative) 05/15/21 Range/Units 15:05 WBC (4.5-11.0) X10^3/uL RBC (4.0-5.2) X10^6/uL Hgb (12.0-16.0) g/dL Hct (36-46) % MCV (80-100) fL MCH (26-34) PG MCHC (30-36) % RDW (11.6-14.8) % Plt Count (150-400) X10^3/uL Neut % (Auto) (50-75) % Lymph % (Auto) (25-40) % [place] % (Auto) (3-14) % Eos % (Auto) (2-4) % Baso % (Auto) (0-2) % Neut # (Auto) (4248-1949) /uL Lymph # (Auto) (6489-8874) /uL [place] # (Auto) (0-900) /uL Eos # (Auto) (0-450) /uL Baso # (Auto) (0-100) /uL Sodium (137-145) mmol/L Potassium (3.4-5.1) mmol/L Chloride (98-107) mmol/L Carbon Dioxide (22-32) mmol/L BUN (7-17) mg/dL Creatinine (0.52-1.04) mg/dL Estimated GFR (>60) mL/min BUN/Creatinine Ratio (6-22) Glucose (80-110) mg/dL Calcium (8.4-10.2) mg/dL Total Bilirubin (0.2-1.3) mg/dL AST (14-36) IU/L ALT (<35) IU/L Alkaline Phosphatase (38-126) U/L Total Protein (6.3-8.2) g/dL Albumin (3.5-5.0) g/dL Globulin (1.7-4.1) g/dL Albumin/Globulin Ratio (1.0-2.8) Prolactin (3.0-18.6) ng/mL Urine RBC (0-5/HPF) Urine WBC (0-5/HPF) Ur Squamous Epith Cells (0-5/HPF) Urine Bacteria (None) Ur Culture Indicated? SARS-CoV-2 (PCR) Negative (Negative) Urine Dip Bedside Urine Glucose Negative Bedside Urine Bilirubin - Negative Bedside Urine Ketone - Negative Urine Specific [employer] 1.025 Bedside Urine Occult Blood + Bedside Urine pH 6.0 Bedside Urine Protein + 30 Bedside Urine Urobilinogen 0.2 Bedside Urine Nitrite - Negative Bedside Urine Leukocytes - Negative Esterase Imaging Data CT scan - head: Radiologist's Impression: ? INDICATIONS:? Seizure.? Recent surgery for glioblastoma. ? TECHNIQUE:? Noncontrast 4.5 mm thick angled axial sections acquired from the foramen magnum to the vertex, with coronal and sagittal reformats.? For radiation dose reduction, the following was used:? automated exposure control, adjustment of mA and/or kV according to patient size.? ? COMPARISON:? Merged With [facility], CT, CT HEAD/BRAIN WO CON, 04/20/2021, 12:43. ? FINDINGS:? Image quality:? Excellent.? ? CSF spaces:? Basal cisterns are patent.? No extra-axial fluid collections.? Ex vacuo dilatation ventricle.? The ventricles are otherwise symmetric in size and shape.? ? Brain:? There is resection cavity right fronto temporal region, which contains a small of gas.? Diffuse right cerebral edema decreased.? Nearly resolved leftward midline shift is present.? There is a low-density subdural fluid collection overlying the right frontal lobe anteriorly measuring roughly 10 mm in thickness..? There is cerebral volume loss for age, with resultant ventricular and sulcal prominence.? There are periventricular and deep white matter chronic small vessel ischemic changes.? There is intracranial internal carotid artery atherosclerosis.? ? Skull and face right frontotemporal craniotomy has been performed.? Calvarium and visualized facial bones otherwise appear intact, without suspicious lesions.? ? Sinuses:? Visualized sinuses and mastoids are clear.? ? IMPRESSION:? 1. Postsurgical sequelae.? Gas within the resection cavity is present, compatible with recent surgery.? Correlation with surgical history is recommended. 2. Small chronic right subdural fluid collection, compatible with postsurgical sequelae. 3. No acute process.? ? ? Dictated by: Beatriz Charles M.D. on 05/15/2021 at 12:58 ? ? Approved by: Beatriz Charles M.D. on 05/15/2021 at 13:00?? Discharge Plan Departure Patient Disposition: Home Clinical Impression: Focal seizure, Glioblastoma multiforme of brain, S/P craniotomy Instructions: Seizure Disorder -- Adult Activity Restrictions/Additional Instructions: Keppra 500 mg 2 times daily. The prescription has been forwarded to [facility] in [place], [place]. Continue other medications. Follow-up with your doctors as scheduled, return here if symptoms worsen. Prescriptions: New levetiracetam [Keppra] 500 mg tablet 500 mg PO BID Qty: 120 0RF No Action latanoprost 0.005 % drops 0RF brimonidine 0.2 % drops 0RF dorzolamide 2 % drops 0RF Referrals: Hema Elias MD [Primary Care Provider] -
[2021-05-15 12:18] LABS: Add Manual Diff / Slide Review NO; Basophils Absolute Auto 0 /uL (0-100); Basophils Percent Auto 0.1 % (0-2); Eosinophils Absolute Auto 0 /uL (0-450); Eosinophils Percent Auto 0.3 % (2-4); Hematocrit 34.3 % (36-46); Hemoglobin 11.7 g/dL (12.0-16.0); Lymphocytes Absolute Auto 900 /uL (1100-4500); Lymphocytes Percent Auto 11.5 % (25-40); Mean Corpuscular HGB Conc 33.9 % (30-36); Mean Corpuscular Hemoglobin 32.3 PG (26-34); Mean Corpuscular Volume 95.2 fL (80-100); Monocytes Absolute Auto 600 /uL (0-900); Monocytes Percent Auto 8.2 % (3-14); Neutrophils Absolute Auto 6000 /uL (1500-7000); Neutrophils Percent Auto 79.9 % (50-75); Platelet Count 227 X10^3/uL (150-400); Red Blood Cell Count 3.61 X10^6/uL (4.0-5.2); Red Cell Distribution Width 14.9 % (11.6-14.8); White Blood Cell Count 7.5 X10^3/uL (4.5-11.0)
[2021-05-15 12:23] LABS: Alanine Aminotransferase 22 IU/L (<35); Albumin 3.8 g/dL (3.5-5.0); Albumin Globulin Ratio 1.5 (1.0-2.8); Alkaline Phosphatase 76 U/L (38-126); Aspartate Aminotransferase 20 IU/L (14-36); Bilirubin Total 0.6 mg/dL (0.2-1.3); Blood Urea Nitrogen 20 mg/dL (7-17); Calcium 9.7 mg/dL (8.4-10.2); Carbon Dioxide 26 mmol/L (22-32); Chloride 101 mmol/L (98-107); Estimated Glomerular Filt Rate > 60.0 mL/min (>60); Globulin 2.6 g/dL (1.7-4.1); Glucose 85 mg/dL (80-110); HEMOLYSIS < 15 (0-50); Potassium 4.3 mmol/L (3.4-5.1); Sodium 133 mmol/L (137-145); Total Protein 6.4 g/dL (6.3-8.2)
[2021-05-15 12:40] LABS: Prolactin 25.5 ng/mL (3.0-18.6)
--- NOTE | 2021-05-15 13:24 | DI.CT.S_ITS ---
PROCEDURE: CT HEAD/BRAIN WO CON INDICATIONS: Seizure. Recent surgery for glioblastoma. TECHNIQUE: Noncontrast 4.5 mm thick angled axial sections acquired from the foramen magnum to the vertex, with coronal and sagittal reformats. For radiation dose reduction, the following was used: automated exposure control, adjustment of mA and/or kV according to patient size. COMPARISON: , CT, CT HEAD/BRAIN WO CON, 04/20/2021, 12:43. FINDINGS: Image quality: Excellent. CSF spaces: Basal cisterns are patent. No extra-axial fluid collections. Ex vacuo dilatation ventricle. The ventricles are otherwise symmetric in size and shape. Brain: There is resection cavity right fronto temporal region, which contains a small of gas. Diffuse right cerebral edema decreased. Nearly resolved leftward midline shift is present. There is a low-density subdural fluid collection overlying the right frontal lobe anteriorly measuring roughly 10 mm in thickness.. There is cerebral volume loss for age, with resultant ventricular and sulcal prominence. There are periventricular and deep white matter chronic small vessel ischemic changes. There is intracranial internal carotid artery atherosclerosis. Skull and face right frontotemporal craniotomy has been performed. Calvarium and visualized facial bones otherwise appear intact, without suspicious lesions. Sinuses: Visualized sinuses and mastoids are clear. IMPRESSION: 1. Postsurgical sequelae. Gas within the resection cavity is present, compatible with recent surgery. Correlation with surgical history is recommended. 2. Small chronic right subdural fluid collection, compatible with postsurgical sequelae. 3. No acute process. Dictated by: Beatriz Charles M.D. on 05/15/2021 at 12:58 Approved by: Beatriz Charles M.D. on 05/15/2021 at 13:00
[2021-05-15 13:50] LABS: Bacteria Urine None Seen; Culture Indicated Urine Cult Not Indicated; RBC Urine None Seen (0-5/HPF); Squamous Epithelial Cell Urine 5-10 /HPF (0-5/HPF); WBC Urine 0-1/HPF (0-5/HPF)
[2021-05-15] MEDS: levETIRAcetam 250 MG TABLET 500 MG PO (16:17)
[2021-05-15 16:18] LABS: COVID19 - ADMIT (NP swab/PCR) Negative (Negative)
== END 2021-05-15 16:50 | disposition home or self-care (01) ==
PROVIDERS: Emergency Provider Emergency Medicine; PCP Family Medicine
DX: G40.89 Other seizures (principal); C71.9 Malignant neoplasm of brain, unspecified; Z98.890 Other specified postprocedural states; Z20.822 Contact with and (suspected) exposure to COVID-19
CPT/HCPCS: 70450; 80053; 81003; 81015; 84146; 85025; 87635; 99284; C9803

== ENCOUNTER 2021-05-24 14:04 | Emergency (ER) | payer MEDICARE, BC, SELFPAY ==
[2021-05-24] VITALS (19 sets, daily range): BP systolic 109–134; BP diastolic 53–78; PULSE 84–114; RESP 17–30; TEMP 37.3; O2SAT 98–100; BMI 20.2
--- NOTE | 2021-05-24 14:20 | DI.CT.S_ITS ---
PROCEDURE: CT HEAD/BRAIN WO CON INDICATIONS: disoriented, brain surgery last month TECHNIQUE: Noncontrast 4.5 mm thick angled axial sections acquired from the foramen magnum to the vertex, with coronal and sagittal reformats. For radiation dose reduction, the following was used: automated exposure control, adjustment of mA and/or kV according to patient size. COMPARISON: [facility], CT, CT HEAD/BRAIN WO CON, 05/15/2021, 13:54. [facility], CT, CT HEAD/BRAIN WO CON, 04/20/2021, 12:43. FINDINGS: Image quality: Excellent. CSF spaces: Basal cisterns are patent. No extra-axial fluid collections. The ventricles are symmetric in size and shape. Brain: There is increased size of the low-density fluid collection at the anterolateral aspect of the right frontal lobe, measuring roughly 48 mm oblique anteroposterior by 17 mm in thickness. There is a new focus of intraparenchymal high density within the right inferior temporal occipital lobe resection cavity, spanning roughly 50 mm anteroposterior by 30 mm transverse by 5 mm craniocaudal. Moderate surrounding low density is present, consistent with edema. There is a small amount of subarachnoid hemorrhage within the right anterior frontal lobe, spanning roughly 15 mm anteroposterior. Diffuse right-sided sulcal effacement is present. There is leftward midline shift measured at roughly 10 mm, which is increased. There is cerebral volume loss for age, with resultant ventricular and sulcal prominence. There are periventricular and deep white matter chronic small vessel ischemic changes. There is intracranial internal carotid artery atherosclerosis. Skull and face: Right frontoparietal craniotomy. Calvarium and visualized facial bones otherwise appear intact, without suspicious lesions. Sinuses: Visualized sinuses and mastoids are clear. IMPRESSION: 1. Postsurgical sequelae. 2. Hemorrhage within the right temporal occipital lobe resection cavity with surrounding edema. 3. Small amount of right frontal subarachnoid hemorrhage. 4. Leftward midline shift as above. 5. Findings discussed with Dr. Henley on 05/24/2021 at 15:40 hours. Dictated by: Beatriz Charles M.D. on 05/24/2021 at 14:43 Approved by: Beatriz Charles M.D. on 05/24/2021 at 14:46
--- NOTE | 2021-05-24 14:52 | ED_ITS ---
HPI - Headache General Chief Complaint: Headache Stated Complaint: Disoriented, brain surg last month Time Seen by Provider: 05/24/21 14:40 Source: patient and family Mode of arrival: Wheelchair Limitations: no limitations History of Present Illness HPI Narrative: 80-year-old female who comes with complaint of right-sided headache, some difficulty with gait and some mental status changes that according her started today. Patient has a known glioblastoma grade 4 that was diagnosed she had brain surgery her states had a partial removal with craniotomy. There was concern for infection of the right scalp and she was put on Septra DS. She was last seen here on the for spasms versus seizure and was started on Keppra 500 mg twice daily. Patient has not had any fevers. She had sudden ons et of some moderate mental status changes, headache. She has not had any nausea or vomiting. She denies vision changes. She notes that she is walking a little bit difficult but she denies any weakness of her extremities. No new speech changes. Her notes she does have some mild facial droop on the left which is new. He states that she did not have any obvious deficits postsurgically that he is aware of. This surgery was completed at [facility]. Related Data Home Medications Medication Instructions Recorded Confirmed brimonidine 0.2 % eye drops 1 drp EYE-BOTH DAILY 05/24/21 05/24/21 fluconazole 200 mg tablet 200 mg PO BID 05/24/21 05/24/21 hydroxyzine pamoate 50 mg capsule 50 mg PO BID PRN 05/24/21 05/24/21 Previous Rx's Medication Instructions Recorded levetiracetam 500 mg tablet 500 mg PO BID #120 tab 05/15/21 (Keppra) Allergies Allergy/AdvReac Type Severity Reaction Status Date / Time No Known Drug Allergies Allergy Verified 05/24/21 14:14 Review of Systems Review of Systems ROS Unobtainable: All systems reviewed & are unremarkable except as noted in HPI and below Patient History Medical History Glaucoma Glioblastoma multiforme of brain Surgical History S/P craniotomy Social History Smoking Status: Unknown if ever smoked Smoking Status: Unknown if ever smoked alcohol intake frequency: holidays/special occasions only Substance Use Type: does not use Exam Narrative Exam Narrative: GEN: well nourished, well appearing elderly female, alert and oriented to self, patient notes her is, she is unsure of the month or the exact location she is at but she knows the year, she is confused when asked some questions and follows some commands but has confusion with others, patient appears to be in mild distress. HEENT: Atraumatic, pupils are equal round reactive to light, extraocular movements are intact, nares are clear, TMs are clear with no fluid, there is no conjunctival pallor. Patient has mild left-sided nasal labial asymmetry. HEART: Regular rate and rhythm without murmur, clicks, rubs. Pulses are equal in upper and lower extremities LUNGS:Lungs clear to auscultation, no wheezes, rales, crackles, chest moves symmetrically ABD:bowel sounds normal, soft, non-tender, no guarding, rebound, rigidity, no masses noted, no hepatosplenomegaly :No CVA tenderness MSCL: Non-tender, no muscle atrophy, muscles strength 5/5 upper and lower extremities, full range of motion NEURO:CN 2-12 intact, sensation normal, reflexes 2/4 upper and lower extremities. finger nose finger test normal, heel kirk test normal, patient had quite a bit difficulty assisting to the bed. SKIN: No rash, no erythema skin changes noted. Initial Vital Signs Initial Vital Signs: Vital Signs Temperature 99.1 F 05/24/21 14:14 Pulse Rate 114 H 05/24/21 14:14 Respiratory Rate 18 05/24/21 14:14 Blood Pressure 122/78 05/24/21 14:14 Pulse Oximetry 99 05/24/21 14:14 Scores GCS Jayashree coma scale eye opening: Spontaneous [place] coma scale verbal response: Confused Jayashree coma scale motor response: Obey commands Jayashree coma scale total score: 14 Course Orders Ordered: ED Orders 05/24/21 14:20 CT head/brain wo con Stat 05/24/21 14:42 COVID19 -Nasal swab/Pre-Proc Stat 05/24/21 15:35 Complete Blood Count AUTO DIFF Stat Comprehensive Metabolic Panel Stat Lipase Stat Partial Thromboplastin Time Stat Prothrombin Time INR Stat 05/24/21 16:14 Urine Microscopic Stat Discontinued Medications Dexamethasone (Dexamethasone 10 Mg/Ml Vial) 10 mg IV NOW ONE Stop: 05/24/21 14:59 Last Admin: 05/24/21 15:03 Dose: 10 mg Documented by: ASIYA Levetiracetam 1,000 mg/ Sodium (Chloride) 110 mls @ 440 mls/hr IV NOW ONE Stop: 05/24/21 16:45 Last Infusion: 05/24/21 17:28 Dose: 0 mls/hr Documented by: Admin: 05/24/21 17:01 Dose: 440 mls/hr Documented by: ASIYA Sodium Chloride (Hypertonic Saline 3%) 500 mls @ 20 mls/hr IV CONT ZULEIKA Stop: 05/24/21 21:59 Last Infusion: 05/24/21 18:20 Dose: 0 mls/hr Documented by: Admin: 05/24/21 17:35 Dose: 50 mls/hr Documented by: ASIYA Reevaluation(s) Reevaluation #1: Patient's mental status has not worsened while here in the department but she still is confused. Discussed her findings with her and her . Both are agreeable to transfer. Time: 17:00 Consultations Consultation #1: Dr. Rosas with neurosurgery at [facility]. Goal systolic blood pressure 160. We reviewed imaging today also have patient's prior imaging from the 15 of May. He notes patient does have 2 small bleeds which were not present. One is not even your her resection. The edema and mental status changes are unexpected for the amount of bleeding that she has present. He recommends Keppra 1 g. Transfer to [facility] and dexamethasone 10 mg. We discussed that given. Also for able to give a % bolus x1 would be appropriate. Vital Signs Vital signs: Vital Signs - 8 hr 05/24/21 14:14 05/24/21 14:44 05/24/21 14:45 Temperature 99.1 F Pulse Rate 114 H 95 H 99 H Respiratory Rate 18 20 20 Blood Pressure 122/78 130/78 Pulse Oximetry 99 100 100 05/24/21 15:00 05/24/21 15:10 05/24/21 15:15 Temperature Pulse Rate 87 85 85 Respiratory Rate 19 20 20 Blood Pressure 133/63 132/64 Pulse Oximetry 99 100 100 05/24/21 15:30 05/24/21 15:31 05/24/21 15:45 Temperature Pulse Rate 87 86 94 H Respiratory Rate 24 22 25 H Blood Pressure 134/61 124/56 L Pulse Oximetry 100 100 100 05/24/21 16:00 05/24/21 16:04 05/24/21 16:15 Temperature Pulse Rate 110 H 98 H 84 Respiratory Rate 30 H 29 H 17 Blood Pressure 131/60 127/60 Pulse Oximetry 100 99 05/24/21 16:30 05/24/21 16:45 05/24/21 17:00 Temperature Pulse Rate 94 H 94 H 95 H Respiratory Rate 24 22 28 H Blood Pressure 125/58 L 114/59 L 109/53 L Pulse Oximetry 100 99 100 05/24/21 17:15 05/24/21 17:30 05/24/21 17:45 Temperature Pulse Rate 90 94 H 90 Respiratory Rate 27 H 28 H 20 Blood Pressure 128/65 119/57 L 119/56 L Pulse Oximetry 100 100 99 05/24/21 18:00 Temperature Pulse Rate 97 H Respiratory Rate 20 Blood Pressure 119/60 Pulse Oximetry 98 MDM - Headache Lab Data Result diagrams: 05/24/21 15:35 05/24/21 15:35 Labs: Lab Results 05/24/21 05/24/21 05/24/21 Range/Units 14:42 15:35 15:35 WBC 14.6 H (4.5-11.0) X10^3/uL RBC 3.87 L (4.0-5.2) X10^6/uL Hgb 12.3 (12.0-16.0) g/dL Hct 36.1 (36-46) % MCV 93.3 (80-100) fL MCH 31.7 (26-34) PG MCHC 33.9 (30-36) % RDW 14.9 H (11.6-14.8) % Plt Count 236 (150-400) X10^3/uL Neut % (Auto) Not Reportable Lymph % (Auto) Not Reportable Shasta % (Auto) Not Reportable Eos % (Auto) Not Reportable Baso % (Auto) Not Reportable Lymph # (Auto) Not Reportable [place]asta # (Auto) Not Reportable Baso # (Auto) Not Reportable Total Counted 100 Seg Neutrophils % 87.0 H (38-70) % Band Neutrophils % 1.0 L (3-7) % Lymphocytes % (Manual) 6.0 L (25-45) % Atypical Lymphs % 1.0 H ( - 0) % Monocytes % (Manual) 5.0 (2-11) % Neutrophils # (Manual) 16737 H (6245-8634) /uL RBC Morphology Normal morphology PT 12.5 (10.1-12.7) SECONDS INR 1.1 (0.9-1.3) APTT 18 L (26.4-36.2) SECONDS Sodium (137-145) mmol/L Potassium (3.4-5.1) mmol/L Chloride (98-107) mmol/L Carbon Dioxide (22-32) mmol/L BUN (7-17) mg/dL Creatinine (0.52-1.04) mg/dL Estimated GFR (>60) mL/min BUN/Creatinine Ratio (6-22) Glucose (80-110) mg/dL Calcium (8.4-10.2) mg/dL Total Bilirubin (0.2-1.3) mg/dL AST (14-36) IU/L ALT (<35) IU/L Alkaline Phosphatase (38-126) U/L Total Protein (6.3-8.2) g/dL Albumin (3.5-5.0) g/dL Globulin (1.7-4.1) g/dL Albumin/Globulin Ratio (1.0-2.8) Lipase (23-300) U/L Urine RBC (0-5/HPF) Urine WBC (0-5/HPF) Ur Squamous Epith Cells (0-5/HPF) Ur Transition Epith Cell (0-5/HPF) Calcium Oxalate Crystal Urine Bacteria (None) Hyaline Casts (None) Granular Casts (None) Urine Mucus (Negative) Ur Culture Indicated? SARS-CoV-2 (PCR) Negative (Negative) 05/24/21 05/24/21 Range/Units 15:35 16:14 WBC (4.5-11.0) X10^3/uL RBC (4.0-5.2) X10^6/uL Hgb (12.0-16.0) g/dL Hct (36-46) % MCV (80-100) fL MCH (26-34) PG MCHC (30-36) % RDW (11.6-14.8) % Plt Count (150-400) X10^3/uL Neut % (Auto) Lymph % (Auto) Shasta % (Auto) Eos % (Auto) Baso % (Auto) Lymph # (Auto) [place] # (Auto) Baso # (Auto) Total Counted Seg Neutrophils % (38-70) % Band Neutrophils % (3-7) % Lymphocytes % (Manual) (25-45) % Atypical Lymphs % ( - 0) % Monocytes % (Manual) (2-11) % Neutrophils # (Manual) (7349-3614) /uL RBC Morphology PT (10.1-12.7) SECONDS INR (0.9-1.3) APTT (26.4-36.2) SECONDS Sodium 131 L (137-145) mmol/L Potassium 4.1 (3.4-5.1) mmol/L Chloride 100 (98-107) mmol/L Carbon Dioxide 29 (22-32) mmol/L BUN 29 H (7-17) mg/dL Creatinine 0.49 L (0.52-1.04) mg/dL Estimated GFR > 60.0 (>60) mL/min BUN/Creatinine Ratio 59.2 H (6-22) Glucose 176 H (80-110) mg/dL Calcium 9.9 (8.4-10.2) mg/dL Total Bilirubin 0.4 (0.2-1.3) mg/dL AST 23 (14-36) IU/L ALT 23 (<35) IU/L Alkaline Phosphatase 77 (38-126) U/L Total Protein 6.2 L (6.3-8.2) g/dL Albumin 3.6 (3.5-5.0) g/dL Globulin 2.6 (1.7-4.1) g/dL Albumin/Globulin Ratio 1.4 (1.0-2.8) Lipase 136 (23-300) U/L Urine RBC 1-5/hpf (0-5/HPF) Urine WBC 1-5/hpf (0-5/HPF) Ur Squamous Epith Cells 1-5 /hpf (0-5/HPF) Ur Transition Epith Cell 1-5/hpf (0-5/HPF) Calcium Oxalate Crystal Many H Urine Bacteria None seen (None) Hyaline Casts 5-10/lpf (None) Granular Casts 1-5/lpf (None) Urine Mucus 1+ H (Negative) Ur Culture Indicated? Cult not indicated SARS-CoV-2 (PCR) (Negative) Urine Dip Bedside Urine Glucose Negative Bedside Urine Bilirubin - Negative Bedside Urine Ketone - Negative Urine Specific Mason 1.030 Bedside Urine Occult Blood +/- Bedside Urine pH 5.5 Bedside Urine Protein + 30 Bedside Urine Urobilinogen - Negative Bedside Urine Nitrite - Negative Bedside Urine Leukocytes - Negative Esterase Imaging Data CT scan - head: Radiologist's Impression: Launch?[place] [address] CT Scan Report Signed Patient: Soniya Braun MR#: [id number] : 1940 Acct:[id number] Age/Sex: 80 / F Date of Service: 05/24/21 Loc: ED Accession Number: [id number] ?? Procedure: CT head/brain wo con Ordering Provider: Karlene Henley D.O. PROCEDURE:? CT HEAD/BRAIN WO CON ? INDICATIONS:? disoriented, brain surgery last month ? TECHNIQUE:? Noncontrast 4.5 mm thick angled axial sections acquired from the foramen magnum to the vertex, with coronal and sagittal reformats.? For radiation dose reduction, the following was used:? automated exposure control, adjustment of mA and/or kV according to patient size.? ? COMPARISON:? [facility], CT, CT HEAD/BRAIN WO CON, 05/15/2021, 13:54.? [facility], CT, CT HEAD/BRAIN WO CON, 04/20/2021, 12:43. ? FINDINGS:? Image quality:? Excellent.? ? CSF spaces:? Basal cisterns are patent.? No extra-axial fluid collections.? The ventricles are symmetric in size and shape.? ? Brain:? There is increased size of the low-density fluid collection at the anterolateral aspect of the right frontal lobe, measuring roughly 48 mm oblique anteroposterior by 17 mm in thickness.? There is a new focus of intraparenchymal high density within the right inferior temporal occipital lobe resection cavity, spanning roughly 50 mm anteroposterior by 30 mm transverse by 5 mm craniocaudal.? Moderate surrounding low density is present, consistent with edema.? There is a small amount of subarachnoid hemorrhage within the right anterior frontal lobe, spanning roughly 15 mm anteroposterior.? Diffuse right-sided sulcal effacement is present.? There is leftward midline shift measured at roughly 10 mm, which is increased.? There is cerebral volume loss for age, with resultant vent ricular and sulcal prominence.? There are periventricular and deep white matter chronic small vessel ischemic changes.? There is intracranial internal carotid artery atherosclerosis.? ? ? Skull and face:? Right frontoparietal craniotomy.? Calvarium and visualized facial bones otherwise appear intact, without suspicious lesions.? ? Sinuses:? Visualized sinuses and mastoids are clear.? ? IMPRESSION:? 1. Postsurgical sequelae. 2. Hemorrhage within the right temporal occipital lobe resection cavity with surrounding edema. 3. Small amount of right frontal subarachnoid hemorrhage. 4. Leftward midline shift as above. 5. Findings discussed with Dr. Henley on 05/24/2021 at 15:40 hours.? ? ? Dictated by: Beatriz Charles M.D. on 05/24/2021 at 14:43 ? ? Approved by: Beatriz Charles M.D. on 05/24/2021 at 14:46?? MDM Narrative Medical decision making narrative: Female who is not anticoagulated with a known glioblastoma para kirk according to family had a partial resection of her glioblastoma with craniotomy. She developed some seizure activity was last seen earlier in May and started on Keppra. Today she has had any mental status change in weakness and difficulty with ambulation and is found to have a new hemorrhage in the right temporal occipital lobe with surrounding edema at the resection cavity as well as a small amount of right frontal subarachnoid hemorrhage and some left midline shift this 10 mm. Patient has clear speech but is confused which states is new. I do appreciate some slight facial asymmetry, on exam she has good range of motion but nursing noted on transfer from wheelchair to bed she required significant assistance. Patient has had dexamethasone. She is not anticoagulated. Dexame thasone was ordered. [facility] was contacted and neurosurgery, Dr. Rosas accepts for transfer. They request 3% saline bolus if available. 1 g Keppra and dexamethasone 10 mg. Plan for transfer as patient had altered mental status that is inconsistent with the imaging that he seeing today. Could potentially be having seizures but patient has not had any seizure activity witnessed at home or with us. Critical Care Time Critical Care Time Critical Care Time: Yes Total Critical Care Time: 45 Attestation: The high probability of a clinically significant, sudden or life threatening deterioration of the [neurological] system(s) required my full and direct attention, intervention and personal management. The aggregate critical care time was [45] minutes. This time is in addition to time spent performing reported procedures but includes the following: [x] Data Review and interpretation [x] Patient assessment and monitoring of vital signs [x] Documentation [x] Medication orders and management Discharge Plan Departure Patient Disposition: [facility] Clinical Impression: Intracranial hemorrhage, Subarachnoid hemorrhage, Hyponatremia, Acute alteration in mental status Prescriptions: No Action levetiracetam [Keppra] 500 mg tablet 500 mg PO BID Qty: 120 0RF hydroxyzine pamoate 50 mg capsule 50 mg PO BID PRN (Reason: Itching) 0RF brimonidine 0.2 % drops 1 drp EYE-BOTH DAILY 0RF fluconazole 200 mg tablet 200 mg PO BID 0RF Rx Instructions: x 10 days, started 05/14/21 Referrals: Hema Elias MD [Primary Care Provider] -
--- NOTE | 2021-05-24 14:54 | PC.NURSE ---
Patient had glioblastoma surgery in April, started complaining of headache with weakness today. At time of assessment patient had left sided facial droop, difficulty follow directions, some slurring of words, and left sided weakness.
[2021-05-24] MEDS: DEXAMETHASONE 10 MG/ML VIAL IV (15:03)
[2021-05-24 15:44] LABS: COVID19 -Nasal RAPID Negative (Negative)
[2021-05-24 15:56] LABS: INR 1.1 (0.9-1.3); Prothrombin Time 12.5 SECONDS (10.1-12.7)
[2021-05-24 15:59] LABS: PTT Partial Thromboplastin Tim 18 SECONDS (26.4-36.2)
[2021-05-24 16:00] LABS: Add Manual Diff / Slide Review YES; Hematocrit 36.1 % (36-46); Hemoglobin 12.3 g/dL (12.0-16.0); Mean Corpuscular HGB Conc 33.9 % (30-36); Mean Corpuscular Hemoglobin 31.7 PG (26-34); Mean Corpuscular Volume 93.3 fL (80-100); Platelet Count 236 X10^3/uL (150-400); Red Blood Cell Count 3.87 X10^6/uL (4.0-5.2); Red Cell Distribution Width 14.9 % (11.6-14.8); White Blood Cell Count 14.6 X10^3/uL (4.5-11.0)
[2021-05-24 16:02] LABS: Alanine Aminotransferase 23 IU/L (<35); Albumin 3.6 g/dL (3.5-5.0); Albumin Globulin Ratio 1.4 (1.0-2.8); Alkaline Phosphatase 77 U/L (38-126); Aspartate Aminotransferase 23 IU/L (14-36); BUN Creatinine Ratio 59.2 (6-22); Bilirubin Total 0.4 mg/dL (0.2-1.3); Blood Urea Nitrogen 29 mg/dL (7-17); Calcium 9.9 mg/dL (8.4-10.2); Carbon Dioxide 29 mmol/L (22-32); Chloride 100 mmol/L (98-107); Estimated Glomerular Filt Rate > 60.0 mL/min (>60); Globulin 2.6 g/dL (1.7-4.1); Glucose 176 mg/dL (80-110); HEMOLYSIS < 15 (0-50); Lipase 136 U/L (23-300); Potassium 4.1 mmol/L (3.4-5.1); Sodium 131 mmol/L (137-145); Total Protein 6.2 g/dL (6.3-8.2)
[2021-05-24 16:16] LABS: Neutrophils Absolute Manual 12848 /uL (3000-5900); RBC Morphology Normal Morphology; Total Cells Counted 100
[2021-05-24] MEDS: levETIRAcetam 1,000 MG in SODIUM CHLORIDE 0.9% 100 ML 440 ML IV (17:01)
[2021-05-24 17:26] LABS: RBC Urine 1-5/HPF (0-5/HPF)
[2021-05-24 17:27] LABS: Bacteria Urine None Seen; Calcium Oxalate Crystals Urine Many; Culture Indicated Urine Cult Not Indicated; Granular Casts Urine 1-5/LPF; Hyaline Casts Urine 5-10/LPF; Mucus Urine 1+ (Negative); Squamous Epithelial Cell Urine 1-5 /HPF (0-5/HPF); Transitional Epi Cells Urine 1-5/HPF (0-5/HPF); WBC Urine 1-5/HPF (0-5/HPF)
[2021-05-24] MEDS: SODIUM CHLORIDE 3 % 500 ML 50 ML IV (17:35)
--- NOTE | 2021-05-24 18:20 | PC.NURSE ---
Patient left with 3% Saline bag with ambulance crew, bag was only 100ml to start, wasted 62. Bag left with ambulance crew and continued on their IV pump.
== END 2021-05-24 18:19 | disposition short-term general hospital (02) ==
PROVIDERS: Emergency Provider Emergency Medicine; PCP Family Medicine
DX: I60.9 Nontraumatic subarachnoid hemorrhage, unspecified (principal); E87.1 Hypo-osmolality and hyponatremia; R41.82 Altered mental status, unspecified; Z20.822 Contact with and (suspected) exposure to COVID-19
CPT/HCPCS: 36415; 70450; 80053; 81003; 81015; 83690; 85007; 85025; 85610; 85730; 87635; 96361; 96365; 96375; 99284; C9803; J1100; J1953